=== PATIENT | female | born 1995 | race Caucasian/White ===

== ENCOUNTER 2018-01-03 12:45 | Emergency (ER) | payer MEDICAID ==
--- NOTE | 2018-01-03 13:26 | ED Physician Chart ---
ED Chief Complaint/HPI - Patient Information Date Seen:: 01/03/18 Time Seen:: 13:10 Chief Complaint:: Headaches History of Present Illness:: onset x 2 days [employer] of dull, intermittent bilateral frontal/parietal/temporal Headaches; and congestion; pt denies trauma, LOC, ALOC, AMS, N/V, decreased activity, visual or gait changes, neck pain, weakness, dizziness, vertigo, paresthesias, C/P, SOB, Abd. Pain, cough, A/N/V/D/C, fever, chills, or urinary s /s; pt is eating and urinating well; pt last urinated one hour [employer]; LNMP: ; pt denies Allergies:: Allergies Allergy/AdvReac Type Severity Reaction Status Date / Time No Known Allergies Allergy Verified 01/03/18 13:10 Vitals:: Vital Signs - 8 hr 01/03/18 13:10 Temp 99 F HR 112 RR 16 BP 122/76 O2 Sat % 97 Historian:: Patient Review:: Nurse's Note Reviewed ED Review of Systems - Review of Systems General/Constitutional: No fever, No chills, No weight loss, No weakness, No diaphoresis, No edema, No loss of appetite Skin: No skin lesions, No rash, No bruising Head: Headache, No light-headedness Eyes: No loss of vision, No pain, No diplopia ENT: No earache, No nasal drainage, No sore throat, No tinnitus Neck: Neck pain, No swelling, No thyromegaly, No stiffness, No mass noted Cardio Vascular: No chest pain, No palpitations, No PND, No orthopnea, No edema Pulmonary: No SOB, No cough, No sputum, No wheezing GI: No nausea, No vomiting, No diarrhea, No pain, No melena, No hematochezia, No constipation, No hematemesis G/U: No dysuria, No frequency, No hematuria, No nacturia 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, No abnormal vaginal bleed, No contraction Musculoskeletal: No bone or joint pain, No back pain, No muscle pain Endocrine: No polyuria, No polydipsia Psychiatric: No prior psych history, No depression, No anxiety, No suicidal ideation, No homicidal ideation, No auditory hallucination, No visual hallucination Hematopoietic: No bruising, No lymphadenopathy Allergic/Immuno: No urticaria, No angioedema Neurological: No syncope, No focal symptoms, No weakness, No paresthesia, Headache, No seizure, No dizziness, No confusion, No vertigo ED Past Medical History - Past Medical History Obtainable: Yes Past Medical History: No significant medical hx Family History: None Social History: Non Smoker, No Alcohol, No Drug Use, Single Surgical History: None Psychiatricy History: None Medication: Reviewed Family Medical History - Family Member Mother Sister History Unknown: Yes ED Physical Exam - Physical Examination General/Constitutional: Awake, Well-developed, well-nourished, Alert, No distress, GCS 15, Non-toxic appearing, Ambulatory Head: Atraumatic Eyes: Lids, conjuctiva normal, PERRL, EOMI Skin: Nl inspection, No rash, No skin lesions, No ecchymosis, Well hydrated, No lymphadenopathy ENMT: External ears, nose nl, TM canals nl, Nasal exam nl, Lips, teeth, gums nl , Oropharynx nl, Tonsils nl Other ENMT comments:: + Frontal Sinus Tenderness; + Nasal Congestion Neck: Nontender, Full ROM w/o pain, No JVD, No nuchal rigidity, No bruit, No mass, No stridor Other Neck comments:: supple; no meningeal signs; no cervical tenderness; no bruits Respiratory: Nl effort/Exclusion, Clear to Auscultation, No Wheeze/Rhonchi/Rales Cardio Vascular: RRR, No murmur, gallop, rubs, NL S1 S2, Carotid/Femoral/Distal pulses equal bilaterally GI: No tenderness/rebounding/guarding, No organomegaly, No hernia, Normal BS's, Nondistended, No mass/bruits, No McBurney tenderness Other GI comments:: no pulsatile masses : No CVA tenderness Extremities: No tenderness or effusion, Full ROM, normal strength in all extremities, No edema, Normal digits & nails Neuro/Psych: Alert/oriented, DTR's symmetric, Normal sensory exam, Normal motor strength, Judgement/insight normal, Mood normal, Normal gait, No focal deficits Other Neuro/Psych comments:: no focal signs Misc: Normal back, No paraspinal tenderness ED Labs/Radiology/EKG Results - Lab Results Comments:: UCG: Negative - Radiology Results Comments:: + Sinusitis ED Septic Shock - . Is Septic Shock (SBP<90, OR Lactate>4 mmol\L) present?: No - <6hrs of presentation: Vital Signs: Vital Signs - 8 hr 01/03/18 13:10 Temp 99 F HR 112 RR 16 BP 122/76 O2 Sat % 97 ED Reassessment (Disposition) - Reassessment Reassessment:: pt tolerated po fluids well in ER; pt is asymptomatic upon discharge Reassessment Condition:: Improved - Diagnosis Diagnosis:: Headaches; Sinus Headaches; Congestion; Sinusitis; Fever; URI; Vascular Cephalgia; Neck Pain; Myalgias; Cervical Sprains and Strains - Aftercare/Follow up Instructions Aftercare/Follow-Up Instructions:: Counseled pt regarding lab results/diagnosis & need follow up, Refer to Discharge Instructions, Counseled pt & family regarding lab results/diagnosis & need follow up Medication Prescribed:: Rx: Amoxicillin 500mg po tid x 10 days; Tylenol 325mg po qid prn headaches/fever / and/or pain; Cool Mist Vaporizer; take medicaTIONS PRESCIBED; ENCOURAGE FLUIDS - Patient Disposition Discharge/Transfer:: Home Condition at Disposition:: Stable, Improved (RTER prn if existing s/s reoccur and/or get worse and/or any other new s/s occur; ACIs given for all above Dx; X- Rays Instructions; Refer to ENT Specialist/Neurologist/Spinal Specialist/ Orthopedist/[employer]; F/U with PMD in one day or prn; RTER prn if concerned) ED Discharge Plan - Patient Disposition Instructions: Sinusitis, [id number] Additional Instructions: Pls follow up with PCP in 1-2 days. Take medications as prescribed. Return to ER if symptoms worsen.
--- NOTE | 2018-01-04 08:46 | Diagnostic Imaging Report ---
Head CT without intravenous contrast Indication: pain Comparison: None Technique: Axial images were obtained from the vertex to the skull base without IV contrast. Coronal reconstructions were made. Total DLP: 544, CTDI31.7 FINDINGS: Images of the brain obtained without contrast demonstrate no evidence of an acute hemorrhage. The brady-white matter differentiation is preserved. No mass effect or midline shift. There is mild increase in size of the temporal horn of right lateral ventricle in relation to the left. No mass lesions identified. No evidence of a skull fracture or focal soft tissue swelling. The visualized paranasal sinuses demonstrate mucosal thickening. IMPRESSION: No evidence of acute intracranial hemorrhage. Mild increased size of the temporal horn of the right lateral ventricle in relation to the left. No obvious mass lesions identified on this noncontrast CT examination. Please correlate with patient's clinical history old exams to ensure stability of this finding. If indicated, a follow-up MRI rapidly with IV contrast and provide for additional detail and assessment.
--- NOTE | 2018-01-04 09:54 | Diagnostic Imaging Report ---
CT cervical spine without IV contrast HISTORY: Neck pain COMPARISON: None Technique: Axial images were obtained from the skull base to the upper thoracic spine without IV contrast. Multiplanar reconstructions were made. Total DLP: 185, CTDI11 FINDINGS: Images of the spine cervical spine obtained without contrast demonstrate no evidence of a fracture or subluxation. The disc spaces are preserved. There is straightening of the cervical lordosis.. No prevertebral soft tissue swelling. No focal soft tissue abnormalities. The lung apices are clear. IMPRESSION: No evidence of a fracture or subluxation. Straightening of the cervical lordosis which may be due to positioning versus muscle spasm.
== END 2018-01-03 17:20 | disposition home or self-care (01) ==
LOC: ER 12:45
DX: G44.1 Vascular headache, not elsewhere classified (principal); R09.81 Nasal congestion; J32.9 Chronic sinusitis, unspecified; J06.9 Acute upper respiratory infection, unspecified; M54.2 Cervicalgia; M79.1 Myalgia; S16.1XXA Strain of muscle, fascia and tendon at neck level, initial encounter; X58.XXXA Exposure to other specified factors, initial encounter; Y93.9 Activity, unspecified; Y92.9 Unspecified place or not applicable; Y99.9 Unspecified external cause status
CPT/HCPCS: 70450-TC; 72125-TC; 81025-TC